=== PATIENT | female | born 1975 | race Caucasian/White ===

== ENCOUNTER 2017-04-06 14:20 | Emergency (ER) | payer OTHER ==
[~2017-04-06] VITALS: Ht 165.1 cm; Wt 54.4 kg
[~2017-04-06 14:20] MED LIST: NO CURRENT MEDS
[2017-04-06 16:11] VITALS: BP 144/84
== END 2017-04-06 16:26 | disposition home or self-care (01) ==
LOC: ER 14:25
DX: R53.1 Weakness (principal); F17.200 Nicotine dependence, unspecified, uncomplicated; F10.10 Alcohol abuse, uncomplicated; R51 Headache
CPT/HCPCS: 70450; 84703; 93005; 99285; A4606; Z7610

== ENCOUNTER 2018-03-23 12:36 | Emergency (ER) | payer OTHER ==
[~2018-03-23] VITALS: Ht 170.2 cm; Wt 62.1 kg
[2018-03-23 12:40] VITALS: BP 145/84
--- NOTE | 2018-03-23 13:20 | NUR ---
Patient discharged to home in stable condition. Written and verbal after care instructions given. Patient verbalizes understanding of instruction.
== END 2018-03-23 13:21 | disposition home or self-care (01) ==
LOC: ER 12:39
DX: J02.9 Acute pharyngitis, unspecified (principal); I49.9 Cardiac arrhythmia, unspecified; F10.10 Alcohol abuse, uncomplicated; F17.200 Nicotine dependence, unspecified, uncomplicated; Y90.9 Presence of alcohol in blood, level not specified; Z98.890 Other specified postprocedural states; Z98.86 Personal history of breast implant removal
CPT/HCPCS: Z7502

== ENCOUNTER 2019-10-18 20:50 | Emergency (ER) | payer OTHER ==
[~2019-10-18] VITALS: Ht 165.1 cm; Wt 59.0 kg
[2019-10-18 20:50] VITALS: BP 141/92
[2019-10-18 22:41] LABS: APPEARANCE,URINE CLEAR (CLEAR); BILIRUBIN,URINE NEGATIVE (NEGATIVE); BLOOD, URINE SMALL Ery/uL (NEGATIVE); COLOR,URINE YELLOW (YELLOW); KETONES,URINE NEGATIVE (NEGATIVE); LEUKOCYTE ESTERASE ,URINE NEGATIVE (NEGATIVE); NITRITE, URINE NEGATIVE (NEGATIVE); PH,URINE 5.5 (5.0-8.0); PROTEIN,URINE NEGATIVE (NEGATIVE); UGLUCOSE NEGATIVE (NEGATIVE); UROBILINOGEN,URINE 0.2 EU/dL (0.2)
--- NOTE | 2019-10-18 22:52 | NUR ---
Patient discharged to home in stable condition. Written and verbal after care instructions given. Patient verbalizes understanding of instruction.
== END 2019-10-18 22:58 | disposition home or self-care (01) ==
LOC: ER 20:51
DX: N92.0 Excessive and frequent menstruation with regular cycle (principal); R51 Headache; G89.29 Other chronic pain; I67.1 Cerebral aneurysm, nonruptured; Z98.890 Other specified postprocedural states
CPT/HCPCS: 81000-TC; 84703-TC

== ENCOUNTER 2019-10-30 05:42 | Emergency (ER) | payer OTHER ==
[~2019-10-30] VITALS: Ht 165.1 cm; Wt 59.0 kg
--- NOTE | 2019-10-30 05:56 | NUR ---
PT BIBS C/O HIGH BP, PT STATES "IM GOING THROUGH A DIFFICULT TIME, I WANT TO MAKE SURE MY BLOOD PRESSURE DOESN'T MAKE MY BRAIN ANURYSM RUPTURE" TO ER BED 4 AWAITING MD ESPINAL
[2019-10-30 06:16] VITALS: BP 142/92
--- NOTE | 2019-10-30 06:16 | NUR ---
Patient discharged to home in stable condition. Written and verbal after care instructions given. Patient verbalizes understanding of instruction.
== END 2019-10-30 06:17 | disposition home or self-care (01) ==
LOC: ER 05:43
DX: I10 Essential (primary) hypertension (principal); I49.9 Cardiac arrhythmia, unspecified; Z98.890 Other specified postprocedural states